=== PATIENT | male | born 2000 | race Caucasian/White ===

== ENCOUNTER 2025-08-17 15:35 | Emergency (ER) | payer OTHER, BC ==
[~2025-08-17] VITALS: Ht 182.9 cm; Wt 90.0 kg
[2025-08-17 15:37] VITALS: O2SAT 99
[2025-08-17] MEDS: ONDANSETRON 4MG ODT PO ONE (17:32)
[2025-08-17] MEDS: HYDROCODONE/ACETAMINOPHEN 5/325MG TABLET PO ONE (17:32)
[2025-08-17] MEDS: IBUPROFEN 600MG TABLET PO ONE (17:33)
[2025-08-17] MEDS ORDERED: TOPUD PO (18:34)
[2025-08-17] MEDS ORDERED: METH-653 MT (18:34)
[2025-08-17] MEDS ORDERED: IBUP-2028 MT (18:34)
[2025-08-17] MEDS ORDERED: LIDO-53 TP (18:34)
[2025-08-17 19:07] VITALS: BP 125/73; PULSE 75; RESP 14; TEMP 36.6; O2SAT 99
== END 2025-08-17 19:39 | disposition home or self-care (01) ==
LOC: ER 15:35
DX: M25.562 Pain in left knee (principal); V03.10XA Pedestrian on foot injured in collision with car, pick-up truck or van in traffic accident, initial encounter; Y93.89 Activity, other specified; Y92.89 Other specified places as the place of occurrence of the external cause; Y99.8 Other external cause status
CPT/HCPCS: 99284; 29505; 73562; Q0162